=== PATIENT | female | born 1935 | race Caucasian/White ===

== ENCOUNTER 2019-10-20 16:49 | Emergency (ER) | payer OTHER ==
[~2019-10-20] VITALS: Ht 154.9 cm; Wt 83.9 kg
[~2019-10-20 16:49] MED LIST changes: -ALBU90OI INH; -Ferrous Sulfat325 MG PO
[2019-10-20] MEDS ORDERED: ALBU90OI INH (17:52)
[2019-10-20 18:02] LABS: Percent Saturation 6.7 % (15.0-50.0)
[2019-10-20] MEDS ORDERED: Ferrous Sulfat325 MG PO (19:17)
== END 2019-10-20 21:00 | disposition home or self-care (01) ==
LOC: ER 16:49
PROVIDERS: Emergency Medicine
DX: D50.9 Iron deficiency anemia, unspecified (principal); R53.83 Other fatigue
CPT/HCPCS: 36415; 36430; 80053; 82607; 82728; 82746; 83540; 83550; 85025; 86850; 86900; 86901; 86923; 99283-25; J7030; P9016

== ENCOUNTER → 2019-10-20 | Outpatient (CLI) | payer OTHER ==
[~2019-10-20] MED LIST: ALBU90OI INH; ERGO50000 PO; Ferrous Sulfat325 MG PO; PROM25 PO
[2019-10-20 15:29] LABS: BASOPHILS ABSOLUTE AUTO 0.03 K/mm3 (0.00-0.23); BASOPHILS PERCENT AUTO 1 % (0-2); EOSINOPHILS PERCENT AUTO 2 % (0-6); Hematocrit 27.3 % (33.0-51.0); Hemoglobin 7.7 g/dL (11.5-16.0); IMMATURE GRAN ABSOLUTE AUTO 0.02 K/mm3 (0.00-0.10); IMMATURE GRAN PERCENT AUTO 0 % (0-1); LYMPHOCYTES ABSOLUTE AUTO 1.19 K/mm3 (0.84-5.20); LYMPHOCYTES PERCENT AUTO 19 % (21-46); MONOCYTES ABSOLUTE AUTO 0.62 K/mm3 (0.16-1.47); MONOCYTES PERCENT AUTO 10 % (4-13); Mean Corpuscular HGB 19.6 pg (26.0-34.0); Mean Corpuscular HGB Conc 28.2 g/dL (31.5-36.5); Mean Corpuscular Volume 70 fL (80-100); Mean Platelet Volume 9.7 fL (9.1-12.4); NEUTROPHILS ABSOLUTE AUTO 4.43 K/mm3 (1.96-9.15); NEUTROPHILS PERCENT AUTO 69 % (41-73); Platelet Count 377 K/mm3 (150-400); RDW Coefficient Variation 17.6 % (11.7-14.2); RDW Standard Deviation 44.1 fL (35.1-46.3); Red Blood Cell Count 3.93 M/mm3 (3.80-5.20); White Blood Cell Count 6.39 K/mm3 (4.00-11.30)
[2019-10-20 15:46] LABS: Alanine Aminotransfer (ALT/SGP 17 U/L (12-78); Albumin, Blood 3.2 g/dL (3.4-5.0); Albumin/Globulin Ratio 0.8 (0.8-1.8); Alk Phos 281 U/L (50-136); Anion Gap 6 mmol/L (6-16); Aspartate Aminotrans (AST/SGOT 16 U/L (12-37); Bilirubin, Total 0.2 mg/dL (0.1-1.0); Blood Urea Nitrogen 13 mg/dL (8-24); Bun/Creatinine Ratio 15.2 (12.0-20.0); CO2, Blood 26 mmol/L (21-32); Calcium, Blood 8.6 mg/dL (8.5-10.1); Chloride, Blood 107 mmol/L (98-108); Creatinine, Blood 0.86 mg/dL (0.40-1.00); Glomerular Filtration Rate >60 (60-); Glucose, Blood 114 mg/dL (70-99); Potassium, Blood 4.2 mmol/L (3.5-5.5); Sodium, Blood 139 mmol/L (136-145); Total Protein, Blood 7.2 g/dL (6.4-8.2)
== END ==
LOC: LAB SHORT 15:22 → LAB 15:22
PROVIDERS: Nurse Practitioner
DX: R53.83 Other fatigue (principal)
CPT/HCPCS: 80053; 85025

== ENCOUNTER → 2021-01-07 | Outpatient (CLI) | payer OTHER ==
[~2021-01-07] MED LIST changes: +ALBU90OI INH; +Ferrous Sulfat325 MG PO
[2021-01-07 20:34] LABS: Iron Serum 31 ug/dL (50-170); Percent Saturation 7.8 % (15.0-50.0); Total Iron Binding Capacity 395 ug/dL (250-450)
[2021-01-07 20:52] LABS: Alanine Aminotransfer (ALT/SGP 19 U/L (12-78); Albumin, Blood 3.6 g/dL (3.4-5.0); Albumin/Globulin Ratio 1.1 (0.8-1.8); Alk Phos 268 U/L (50-136); Anion Gap 7 mmol/L (6-16); Aspartate Aminotrans (AST/SGOT 15 U/L (12-37); Bilirubin, Total 0.3 mg/dL (0.1-1.0); Blood Urea Nitrogen 12 mg/dL (8-24); CO2, Blood 23 mmol/L (21-32); Chloride, Blood 110 mmol/L (98-108); Creatinine, Blood 0.92 mg/dL (0.40-1.00); Ferritin, Serum 18 ng/mL (8-252); Globulin, Blood 3.2 g/dL (2.2-4.0); Glomerular Filtration Rate >60 (60-); Glucose, Blood 106 mg/dL (70-99); Potassium, Blood 4.1 mmol/L (3.5-5.5); Sodium, Blood 140 mmol/L (136-145); Total Protein, Blood 6.8 g/dL (6.4-8.2)
== END | disposition home or self-care (01) ==
LOC: PLD 15:00 → LAB SHORT 15:00
PROVIDERS: Family Medicine
DX: Z13.29 Encounter for screening for other suspected endocrine disorder (principal); D64.9 Anemia, unspecified; I10 Essential (primary) hypertension
CPT/HCPCS: 80053; 82728; 83540; 83550; 84443

== ENCOUNTER 2021-05-18 20:48 | Emergency (ER) | payer OTHER ==
[~2021-05-18] VITALS: Ht 157.5 cm; Wt 84.2 kg
== END 2021-05-18 22:35 | disposition home or self-care (01) ==
LOC: ER 20:48
DX: R05 Cough (principal); J44.9 Chronic obstructive pulmonary disease, unspecified; Z88.0 Allergy status to penicillin; Z88.8 Allergy status to other drugs, medicaments and biological substances; Z79.899 Other long term (current) drug therapy
CPT/HCPCS: 99283; A9270

== ENCOUNTER 2022-03-05 13:21 | Inpatient (IN) | payer OTHER ==
[~2022-03-05] VITALS: Ht 157.5 cm; Wt 82.8 kg
[~2022-03-05 13:21] MED LIST changes: -Acetaminophen325 M1 PO; -OMEP20ER PO
[2022-03-05 13:52] LABS: BASOPHILS ABSOLUTE AUTO 0.04 K/mm3 (0.00-0.23); BASOPHILS PERCENT AUTO 1 % (0-2); EOSINOPHILS ABSOLUTE AUTO 0.23 K/mm3 (0.00-0.68); EOSINOPHILS PERCENT AUTO 4 % (0-6); Hematocrit 25.1 % (33.0-51.0); Hemoglobin 6.6 g/dL (11.5-16.0); IMMATURE GRAN ABSOLUTE AUTO 0.03 K/mm3 (0.00-0.10); IMMATURE GRAN PERCENT AUTO 1 % (0-1); LYMPHOCYTES ABSOLUTE AUTO 1.16 K/mm3 (0.84-5.20); LYMPHOCYTES PERCENT AUTO 19 % (21-46); MONOCYTES ABSOLUTE AUTO 0.38 K/mm3 (0.16-1.47); MONOCYTES PERCENT AUTO 6 % (4-13); Mean Corpuscular HGB 17.6 pg (26.0-34.0); Mean Corpuscular HGB Conc 26.3 g/dL (31.5-36.5); Mean Corpuscular Volume 67 fL (80-100); Mean Platelet Volume 9.5 fL (9.1-12.4); NEUTROPHILS ABSOLUTE AUTO 4.36 K/mm3 (1.96-9.15); NEUTROPHILS PERCENT AUTO 70 % (41-73); NRBC ABSOLUTE 0.03 K/mm3 (0.00-0.02); NRBC Auto 0.5 /100 WBC (0.0-0.2); Platelet Count 493 K/mm3 (150-400); RDW Coefficient Variation 22.1 % (11.7-14.2); RDW Standard Deviation 52.3 fL (35.1-46.3); Red Blood Cell Count 3.74 M/mm3 (3.80-5.20)
[2022-03-05 14:09] LABS: Alanine Aminotransfer (ALT/SGP 17 U/L (12-78); Albumin/Globulin Ratio 0.8 (0.8-1.8); Alk Phos 336 U/L (50-136); Anion Gap 8 mmol/L (6-16); Aspartate Aminotrans (AST/SGOT 16 U/L (12-37); Bilirubin, Total 0.2 mg/dL (0.1-1.0); Blood Urea Nitrogen 14 mg/dL (8-24); Bun/Creatinine Ratio 17.6 (12.0-20.0); CO2, Blood 27 mmol/L (21-32); Calcium, Blood 8.3 mg/dL (8.5-10.1); Chloride, Blood 106 mmol/L (98-108); Globulin, Blood 3.9 g/dL (2.2-4.0); Glomerular Filtration Rate >60 (60-); Glucose, Blood 157 mg/dL (70-99); Potassium, Blood 3.9 mmol/L (3.5-5.5); Sodium, Blood 141 mmol/L (136-145); Total Protein, Blood 6.9 g/dL (6.4-8.2)
[2022-03-05 14:16] LABS: Percent Saturation 2.6 % (15.0-50.0)
[2022-03-05 14:28] LABS: International Normalized Ratio 0.99; Prothrombin Time Results 10.4 Sec (9.7-11.5)
--- NOTE | 2022-03-05 19:12 | NUR ---
SHIFT SUMMARY PATIENT ADMITTED FROM ER FOR GI BLEED. PATIENT CAME UP RECEIVING 2ND UNIT OF BLOOD. FULL LIQUID DIET AND NPO AFTER BREAKFAST WITH PLANNED EGD TOMORROW. UP TO RESTROOM 1PA TO MANAGE IV POLE AND TELE BOX. ADMISSION DOCUMENTATION COMPLETED EXCEPT ADMISSION ASSESMENT. REPORTED TO ONCOMING RN.
--- NOTE | 2022-03-05 20:19 | NUR ---
NURSE NOTE: SECOND UNIT OF BLOOD COMPLETED AT 2019- TOTAL OF 767 ML FROM SECOND BAG OF PRBC'S INCLUDING LINE FLUSH. PATIENTS VITALS REMAINED STABLE, LUNG SOUNDS CLEAR. BLOOD PRODUCT DOCUMENTATION INITIATED PAPER CHARTING IN ED. PER CHARGE NURSE COMPLETE BLOOD ADMINISTRATION CHARTING VIA PAPER CHART- PLACED IN PT CHART. IV REMOVED POST ADMINISTRATION OF BLOOD PRODUCT DUE TO PT COMPLAINT OF DISCOMFORT AND SLIGHT LEAKING AT SIGHT. PT DECLINED ANY ADDITIONAL IV PLACEMENT AT THIS TIME, AGREES FOR NEW IV TO BE PLACED PRIOR TO TOMORROWS EGD PROCEDURE.
--- NOTE | 2022-03-06 00:07 | NUR ---
2240- NOTIFIED PT IV REMOVED DUE TO LEAKING, PT REFUSED NEW PLACEMENT OF IV AT THIS TIME. REQUESTING NEW IV TO BE PLACED PRIOR TO EGD TOMORROW. PT ON TELEMETRY- MD AWARE AND APPROVED APPROPRIATE PLAN.
--- NOTE | 2022-03-06 05:25 | NUR ---
SHIFT SUMMARY: PATIENT A/O X4. SECOND UNIT OF BLOOD COMPLETED AT 2019 WITH NO COMPLICATIONS. PT REQUEST FOR IV TO BE REMOVED AND NOT REPLACED TILL PRIOR TO SCHEDULED EGD- DUE TO CONTINUED TELEMETRY MD WAS NOTIFIED AND AWARE. NO COMPLAINTS OF PAIN OR BLOODY STOOLS. SUPERVISION UP TO BATHROOM, STEADY ON FEET, ORIENTED TO OWN ABILITY. BED IN LOW POSITION, CALL NEWBERRY AND BELONGINGS IN REACH.
--- NOTE | 2022-03-06 07:13 | NUR ---
PT COOPERATIVE AND PLEASANT. A/O X4. DENIES PAIN. H/R REGULAR. NO MURMUR PRESENT. ON TELE. PER BODY PRESSER NSR IN 80'S. LUNGS CLEAR BILATERALLY ON ROOM AIR. BREATHING IS EASY AND UNLABORED. HYPERACTIVE BOWEL SOUNDS. PT STATES LAST BOWEL MOVEMENT WAS YESTERDAY MORNING. PT AMBULATES TO RESTROOM WITH STANDBY ASSIST. PER REPORT FROM RN, PT TO GET ENDOSCOPY TODAY AROUND 1500. PT DOES NOT HAVE AN IV ESTABLISHED AND REQUESTS TO WAIT UNTIL LATER TODAY. PT IS TO BE NPO AFTER HER MORNING CLEAR LIQUID BREAKFAST. BED IN LOW POSITION, CALL LIGHT IN REACH, CALLS APPROPRATLY.
--- NOTE | 2022-03-06 09:01 | NUR ---
PT IRRITABLE THAT SHE HAS TO HAVE BLOOD DRAWN WELL AN IV INSERTED FOR HER UPPER ENDOSCOPY. IV WAS ATTEMPTED, PT REQUESTED WE GIVE HER A BREAK. SHE SAYS SHE WILL GIVE US ONE MORE TIME, BUT AFTER THAT SHE MAY NOT HAVE THE ENDOSCOPY. SHE WILL GO HOME AND CONTINUE TO DO WHAT SHE HAS BEEN DOING. PT MADE AWARE THAT DOCTOR REQUESTED SHE HAVE THE UPPER ENDOSCOPY TO SEE WHAT IS GOING ON.
[2022-03-06 11:22] LABS: BASOPHILS ABSOLUTE AUTO 0.05 K/mm3 (0.00-0.23); BASOPHILS PERCENT AUTO 1 % (0-2); EOSINOPHILS ABSOLUTE AUTO 0.28 K/mm3 (0.00-0.68); EOSINOPHILS PERCENT AUTO 5 % (0-6); Hematocrit 29.5 % (33.0-51.0); Hemoglobin 8.7 g/dL (11.5-16.0); IMMATURE GRAN ABSOLUTE AUTO 0.03 K/mm3 (0.00-0.10); IMMATURE GRAN PERCENT AUTO 1 % (0-1); LYMPHOCYTES ABSOLUTE AUTO 1.15 K/mm3 (0.84-5.20); LYMPHOCYTES PERCENT AUTO 21 % (21-46); MONOCYTES ABSOLUTE AUTO 0.65 K/mm3 (0.16-1.47); MONOCYTES PERCENT AUTO 12 % (4-13); Mean Corpuscular HGB 20.5 pg (26.0-34.0); Mean Corpuscular HGB Conc 29.5 g/dL (31.5-36.5); Mean Corpuscular Volume 69 fL (80-100); Mean Platelet Volume 9.4 fL (9.1-12.4); NEUTROPHILS ABSOLUTE AUTO 3.28 K/mm3 (1.96-9.15); NEUTROPHILS PERCENT AUTO 60 % (41-73); NRBC ABSOLUTE 0.03 K/mm3 (0.00-0.02); NRBC Auto 0.6 /100 WBC (0.0-0.2); Platelet Count 441 K/mm3 (150-400); RDW Coefficient Variation 23.7 % (11.7-14.2); RDW Standard Deviation 58.4 fL (35.1-46.3); Red Blood Cell Count 4.25 M/mm3 (3.80-5.20); White Blood Cell Count 5.44 K/mm3 (4.00-11.30)
[2022-03-06 11:42] LABS: Alanine Aminotransfer (ALT/SGP 16 U/L (12-78); Albumin, Blood 2.9 g/dL (3.4-5.0); Albumin/Globulin Ratio 0.8 (0.8-1.8); Alk Phos 321 U/L (50-136); Anion Gap 4 mmol/L (6-16); Aspartate Aminotrans (AST/SGOT 11 U/L (12-37); Bilirubin, Total 0.5 mg/dL (0.1-1.0); Blood Urea Nitrogen 11 mg/dL (8-24); Bun/Creatinine Ratio 14.8 (12.0-20.0); CO2, Blood 27 mmol/L (21-32); Calcium, Blood 8.7 mg/dL (8.5-10.1); Chloride, Blood 108 mmol/L (98-108); Creatinine, Blood 0.74 mg/dL (0.40-1.00); Globulin, Blood 3.8 g/dL (2.2-4.0); Glomerular Filtration Rate >60 (60-); Glucose, Blood 92 mg/dL (70-99); Potassium, Blood 4.2 mmol/L (3.5-5.5); Sodium, Blood 139 mmol/L (136-145); Total Protein, Blood 6.7 g/dL (6.4-8.2)
--- NOTE | 2022-03-06 14:47 | NUR ---
DAY SURGERY TO COLLECT PT FOR ENDOSCOPY. PT LEFT ROOM AT 1435.
--- NOTE | 2022-03-06 14:55 | NUR ---
History, Chart, Medications and Allergies reviewed before start of procedure.Lungs clear T/O to Auscultation. Patient confirms NPO status and agrees with scheduled surgery. Pre-Op teaching done. Pt verbalizes understanding.
--- NOTE | 2022-03-06 14:55 | NUR ---
DAUGHTER AT BEDSIDE
--- NOTE | 2022-03-06 16:13 | NUR ---
03/06/22 1613 Alejandra Cordon SEE ANESTHESIA RECORD. Bite Block Placed.
[2022-03-06] MEDS ORDERED: OMEP20ER PO (18:14)
[2022-03-06] MEDS ORDERED: Acetaminophen325 M1 PO (18:14)
--- NOTE | 2022-03-06 18:28 | NUR ---
MATEUS RECEIVED FROM DR DAVIS THIS SERENA. DAUGHTER TO COME TO HOSP AND TAKE HOME. TO [place]. PT DOING WELL AFTER EGD. VSS. WILL DO DISCHAARGE AND GET DONE SHORTLY TO DISCHARGE SHIFT CHANGE. BED IN LOW POSITION, CALL LITE IN REACH, CALLS APPROP
--- NOTE | 2022-03-06 18:33 | NUR ---
PT PLEASANT TODAY. A/O X4. WAS NPO DUE TO HER ENDOSCOPY. PT RETURNED FROM ENDOSCOPY AT 1456. PT ANXIOUS TO RETURN HOME. DENIES PAIN. H/R REGUALR IN 80'S. ON TELE. NO MURMUR. LUNGS CLEAR BILATERALLY. LAST BOWEL MOVEMENT WAS TODAY PT STATED. AMBULATED TO RESTROOM INDEPENDENTLY. GIVEN ICECREAM AND ICE CHIPS AFTER ENDOSCOPY. PT TOLERATED PO INTAKE WELL. BED IN LOW POSITON, CALL LIGHT IN PLACE AND CALLS APPROPRIATLY.
--- NOTE | 2022-03-06 19:50 | NUR ---
NURSE NOTE: ROCÍO OLIVA NOTIFIED- COMPLICATION IN PLANNED DISCHARGE TONIGHT. DAUGHTER OF PATIENT CALLED AND HAS A FAMILY EMERGENCY AND CANNOT PROVIDE DISCHARGE TRANSPORTATION TONIGHT. MULTIPLE ATTEMPTS TO CONTACT THE [facility] WITH NO ANSWER- THE FACILITY CLOSES AT 1700. PATIENT EXPRESSED CONCERN THAT IF [facility] IS USED FOR DISCHARGE TRANSPORTATION THAT SHE WILL NOT HAVE ACCESS TO THE FACILITY, PT REPORTS NO [facility] IN PERSONAL POSSESSION. PATIENT REQUESTING TO STAY OVERNIGHT UNTIL TOMORROW WHEN WE CAN GUARANTEE A SAFE TRANSPORT. MD REQUEST TO CONTINUE IN ATTEMPT TO COMPLETE DISCHARGE TONIGHT, IF UNABLE TO DISCHARGE TONIGHT MD AGREES TO KEEP PATIENT OVERNIGHT. MD GAVE TELEPHONE ORDER TO DISCONTINUE TELEMETRY AND IV.
--- NOTE | 2022-03-07 03:57 | NUR ---
SHIFT SUMMARY: PT A/OX4, ADLIB IN ROOM, INDEPENDENT ADL's. NO COMPLAINTS OF PAIN THROUGHOUT SHIFT. DUE TO LAST NIGHTS PLANNED DISCHARGE BEING POSPONED TILL TODAY, IV IS OUT, TELEMETRY DISCONTINUED AND DISCHARGE PAPER WORK GIVEN TO PATIENT AND REVIEWED. DISCHARGE DELAYED TILL TODAY DUE TO INABILITY TO TRANSPORT PT TO FACILITY, FAMILY EMER[facility] CAUSED INABILITY FOR TRANSPORT AND WAS NOT ABLE TO REACH ASSISTED LIVING TO ENSURE PATIENT WOULD BE LET IN IF ALTERNATIVE TRANSPORTATION WAS CHOSEN. PT DOES NOT HAVE L[facility] AND FACILITY ANSWERING SERVICES CLOSED AT 1700. NO CHANGES THROUGHOUT THE NIGHT.
--- NOTE | 2022-03-07 10:24 | NUR ---
DISCHARGE PT WAS EXPECTED TO DISCHARGE LAST NIGHT AND WAS UNABLE TO DUE TO RIDE ISSUES. TODAY PT CALLED HER FACILITY AND A [facility] AND GOT HERSELF A RIDE. ALL IV AND TELE WAS DC'D LAST NIGHT. PT HAD HER DISCHARGE BINDER AND WAS CLEAR ON DISCHARGE INSTRUCTIONS. SHE WAS WHEELED TO THE EXT AND LEFT AT 0845.
== END 2022-03-07 08:50 | disposition home or self-care (01) | DRG 379 ==
LOC: ER 13:21 → MEDS 17:21
PROVIDERS: Physician Assistant; Student in an Organized Health Care Education/Training Program; ADMIT Family Medicine
PROC: 0DB68ZX Excision of Stomach, Via Natural or Artificial Opening Endoscopic, Diagnostic (ICD-10-PCS; 2022-03-06)
PROC: 30233N1 Transfusion of Nonautologous Red Blood Cells into Peripheral Vein, Percutaneous Approach (ICD-10-PCS; 2022-03-06)
PROC: 0DB98ZX Excision of Duodenum, Via Natural or Artificial Opening Endoscopic, Diagnostic (ICD-10-PCS; principal; 2022-03-06 15:30)
DX: K29.71 Gastritis, unspecified, with bleeding (principal); D50.0 Iron deficiency anemia secondary to blood loss (chronic); K44.9 Diaphragmatic hernia without obstruction or gangrene; J44.9 Chronic obstructive pulmonary disease, unspecified; I10 Essential (primary) hypertension; Z68.33 Body mass index [BMI] 33.0-33.9, adult; E66.9 Obesity, unspecified; E55.9 Vitamin D deficiency, unspecified; G47.33 Obstructive sleep apnea (adult) (pediatric); Z60.2 Problems related to living alone; M85.80 Other specified disorders of bone density and structure, unspecified site; Z88.0 Allergy status to penicillin; Z88.8 Allergy status to other drugs, medicaments and biological substances; Z79.899 Other long term (current) drug therapy; Z90.49 Acquired absence of other specified parts of digestive tract
CPT/HCPCS: 36415; 36430; 80053; 82272; 82728; 82977; 83540; 83550; 85025; 85610; 85730; 86381; 86850; 86900; 86901; 86923; 88305; 88342; 93005; 93010; 96374; 99285-25; C9113; J2405; J2704; J7030; J7120; P9016

== ENCOUNTER → 2022-03-05 | Outpatient (CLI) | payer OTHER ==
[~2022-03-05] MED LIST changes: +Acetaminophen325 M1 PO; +OMEP20ER PO
[2022-03-05 11:38] LABS: BASOPHILS ABSOLUTE AUTO 0.03 K/mm3 (0.00-0.23); BASOPHILS PERCENT AUTO 1 % (0-2); EOSINOPHILS ABSOLUTE AUTO 0.27 K/mm3 (0.00-0.68); EOSINOPHILS PERCENT AUTO 4 % (0-6); Hematocrit 24.1 % (33.0-51.0); Hemoglobin 6.4 g/dL (11.5-16.0); IMMATURE GRAN ABSOLUTE AUTO 0.03 K/mm3 (0.00-0.10); IMMATURE GRAN PERCENT AUTO 1 % (0-1); LYMPHOCYTES ABSOLUTE AUTO 1.26 K/mm3 (0.84-5.20); LYMPHOCYTES PERCENT AUTO 20 % (21-46); MONOCYTES PERCENT AUTO 11 % (4-13); Mean Corpuscular HGB 17.5 pg (26.0-34.0); Mean Corpuscular HGB Conc 26.6 g/dL (31.5-36.5); Mean Corpuscular Volume 66 fL (80-100); Mean Platelet Volume 9.8 fL (9.1-12.4); NEUTROPHILS ABSOLUTE AUTO 4.06 K/mm3 (1.96-9.15); NEUTROPHILS PERCENT AUTO 64 % (41-73); NRBC ABSOLUTE 0.04 K/mm3 (0.00-0.02); NRBC Auto 0.6 /100 WBC (0.0-0.2); Platelet Count 480 K/mm3 (150-400); RDW Coefficient Variation 22.5 % (11.7-14.2); Red Blood Cell Count 3.65 M/mm3 (3.80-5.20); White Blood Cell Count 6.35 K/mm3 (4.00-11.30)
[2022-03-05 11:57] LABS: Anion Gap 9 mmol/L (6-16); Blood Urea Nitrogen 14 mg/dL (8-24); Bun/Creatinine Ratio 16.5 (12.0-20.0); CO2, Blood 26 mmol/L (21-32); Calcium, Blood 8.3 mg/dL (8.5-10.1); Chloride, Blood 106 mmol/L (98-108); Creatinine, Blood 0.85 mg/dL (0.40-1.00); Glomerular Filtration Rate >60 (60-); Glucose, Blood 86 mg/dL (70-99); Sodium, Blood 141 mmol/L (136-145)
== END | disposition home or self-care (01) ==
LOC: LAB SHORT 11:33 → LAB 11:33
PROVIDERS: Physician Assistant Surgical
DX: R06.00 Dyspnea, unspecified (principal); R53.83 Other fatigue
CPT/HCPCS: 80048; 83880; 84443; 84484; 85025; 85379

== ENCOUNTER 2022-06-12 15:37 | Emergency (ER) | payer OTHER ==
[~2022-06-12] VITALS: Ht 152.4 cm; Wt 81.7 kg
[~2022-06-12 15:37] MED LIST changes: +Acetaminophen325 M1 PO; +OMEP20ER PO
[2022-06-12 16:16] LABS: BASOPHILS ABSOLUTE AUTO 0.04 K/mm3 (0.00-0.23); BASOPHILS PERCENT AUTO 0 % (0-2); EOSINOPHILS ABSOLUTE AUTO 0.27 K/mm3 (0.00-0.68); EOSINOPHILS PERCENT AUTO 3 % (0-6); Hematocrit 23.1 % (33.0-51.0); IMMATURE GRAN ABSOLUTE AUTO 0.05 K/mm3 (0.00-0.10); IMMATURE GRAN PERCENT AUTO 1 % (0-1); LYMPHOCYTES ABSOLUTE AUTO 1.24 K/mm3 (0.84-5.20); LYMPHOCYTES PERCENT AUTO 13 % (21-46); MONOCYTES ABSOLUTE AUTO 0.72 K/mm3 (0.16-1.47); MONOCYTES PERCENT AUTO 8 % (4-13); Mean Corpuscular HGB 14.5 pg (26.0-34.0); Mean Corpuscular HGB Conc 24.7 g/dL (31.5-36.5); Mean Corpuscular Volume 59 fL (80-100); Mean Platelet Volume 9.6 fL (9.1-12.4); NEUTROPHILS PERCENT AUTO 75 % (41-73); NRBC ABSOLUTE 0.03 K/mm3 (0.00-0.02); NRBC Auto 0.3 /100 WBC (0.0-0.2); Platelet Count 501 K/mm3 (150-400); RDW Coefficient Variation 21.9 % (11.7-14.2); RDW Standard Deviation 42.7 fL (35.1-46.3); Red Blood Cell Count 3.92 M/mm3 (3.80-5.20); White Blood Cell Count 9.22 K/mm3 (4.00-11.30)
[2022-06-12 16:19] LABS: Hemoglobin 5.7 g/dL (11.5-16.0)
[2022-06-12 16:35] LABS: Albumin, Blood 3.1 g/dL (3.4-5.0); Albumin/Globulin Ratio 0.7 (0.8-1.8); Bilirubin, Total 0.3 mg/dL (0.1-1.0); Bun/Creatinine Ratio 13.6 (12.0-20.0); Calcium, Blood 8.5 mg/dL (8.5-10.1); Creatinine, Blood 0.73 mg/dL (0.40-1.00); Globulin, Blood 4.2 g/dL (2.2-4.0); Potassium, Blood 3.8 mmol/L (3.5-5.5); Total Protein, Blood 7.3 g/dL (6.4-8.2)
== END 2022-06-12 21:50 | disposition home or self-care (01) ==
LOC: ER 15:37
PROVIDERS: Physician Assistant
DX: K92.2 Gastrointestinal hemorrhage, unspecified (principal); D64.9 Anemia, unspecified; Z79.899 Other long term (current) drug therapy
CPT/HCPCS: 36415; 71045; 80053; 84484; 85025; 86850; 86900; 86901; 86923; 93005; 93010; J7030; P9016

== ENCOUNTER 2022-06-26 11:54 | Emergency (ER) | payer OTHER ==
[~2022-06-26] VITALS: Ht 157.5 cm; Wt 81.7 kg
[2022-06-26 13:12] LABS: BASOPHILS ABSOLUTE AUTO 0.03 K/mm3 (0.00-0.23); BASOPHILS PERCENT AUTO 1 % (0-2); EOSINOPHILS ABSOLUTE AUTO 0.27 K/mm3 (0.00-0.68); EOSINOPHILS PERCENT AUTO 5 % (0-6); Hematocrit 25.7 % (33.0-51.0); Hemoglobin 7.1 g/dL (11.5-16.0); IMMATURE GRAN ABSOLUTE AUTO 0.01 K/mm3 (0.00-0.10); IMMATURE GRAN PERCENT AUTO 0 % (0-1); LYMPHOCYTES ABSOLUTE AUTO 1.01 K/mm3 (0.84-5.20); LYMPHOCYTES PERCENT AUTO 18 % (21-46); MONOCYTES ABSOLUTE AUTO 0.68 K/mm3 (0.16-1.47); MONOCYTES PERCENT AUTO 12 % (4-13); Mean Corpuscular HGB 17.9 pg (26.0-34.0); Mean Corpuscular HGB Conc 27.6 g/dL (31.5-36.5); Mean Corpuscular Volume 65 fL (80-100); NEUTROPHILS ABSOLUTE AUTO 3.72 K/mm3 (1.96-9.15); NEUTROPHILS PERCENT AUTO 65 % (41-73); NRBC ABSOLUTE 0.02 K/mm3 (0.00-0.02); NRBC Auto 0.3 /100 WBC (0.0-0.2); Platelet Count 567 K/mm3 (150-400); RDW Coefficient Variation 28.2 % (11.7-14.2); RDW Standard Deviation 62.6 fL (35.1-46.3); Red Blood Cell Count 3.97 M/mm3 (3.80-5.20); White Blood Cell Count 5.72 K/mm3 (4.00-11.30)
[2022-06-26 13:44] LABS: Albumin, Blood 2.9 g/dL (3.4-5.0); Albumin/Globulin Ratio 0.7 (0.8-1.8); Bilirubin, Total 0.2 mg/dL (0.1-1.0); Bun/Creatinine Ratio 11.6 (12.0-20.0); Calcium, Blood 8.2 mg/dL (8.5-10.1); Creatinine, Blood 0.69 mg/dL (0.40-1.00); Globulin, Blood 4.1 g/dL (2.2-4.0); Potassium, Blood 3.7 mmol/L (3.5-5.5)
== END 2022-06-26 20:41 | disposition home or self-care (01) ==
LOC: ER 11:54
PROVIDERS: Physician Assistant
DX: D50.0 Iron deficiency anemia secondary to blood loss (chronic) (principal); E66.9 Obesity, unspecified; I10 Essential (primary) hypertension; Z88.0 Allergy status to penicillin; Z91.018 Allergy to other foods; Z79.899 Other long term (current) drug therapy
CPT/HCPCS: 36415; 80053; 85025; 86850; 86900; 86901; 86923; J7030; P9016

== ENCOUNTER → 2023-01-04 | Outpatient (CLI) | payer OTHER | END | disposition home or self-care (01) | LOC: LAB 14:36 → LAB SHORT 14:36 | DX: M79.604 Pain in right leg (principal); M79.605 Pain in left leg | CPT/HCPCS: 85379 ==

== ENCOUNTER → 2023-07-26 | Outpatient (CLI) | payer OTHER | LOC: LAB SHORT 14:29 → PLD 14:29 | DX: D36.12 Benign neoplasm of peripheral nerves and autonomic nervous system, upper limb, including shoulder (principal); L82.1 Other seborrheic keratosis | CPT/HCPCS: 88305 ==

== ENCOUNTER 2023-07-27 20:47 | Emergency (ER) | payer OTHER ==
[~2023-07-27] VITALS: Ht 154.9 cm; Wt 83.9 kg
[2023-07-27 21:34] VITALS: BP 144/75
[2023-07-27 23:50] LABS: BASOPHILS ABSOLUTE AUTO 0.04 K/mm3 (0.00-0.23); BASOPHILS PERCENT AUTO 1 % (0-2); EOSINOPHILS ABSOLUTE AUTO 0.19 K/mm3 (0.00-0.68); EOSINOPHILS PERCENT AUTO 3 % (0-6); Hematocrit 42.4 % (33.0-51.0); Hemoglobin 13.5 g/dL (11.5-16.0); IMMATURE GRAN ABSOLUTE AUTO 0.02 K/mm3 (0.00-0.10); IMMATURE GRAN PERCENT AUTO 0 % (0-1); LYMPHOCYTES ABSOLUTE AUTO 1.14 K/mm3 (0.84-5.20); LYMPHOCYTES PERCENT AUTO 16 % (21-46); MONOCYTES ABSOLUTE AUTO 0.55 K/mm3 (0.16-1.47); MONOCYTES PERCENT AUTO 8 % (4-13); Mean Corpuscular HGB 28.3 pg (26.0-34.0); Mean Corpuscular HGB Conc 31.8 g/dL (31.5-36.5); Mean Corpuscular Volume 89 fL (80-100); Mean Platelet Volume 9.4 fL (9.1-12.4); NEUTROPHILS ABSOLUTE AUTO 5.24 K/mm3 (1.96-9.15); NEUTROPHILS PERCENT AUTO 73 % (41-73); Platelet Count 339 K/mm3 (150-400); RDW Coefficient Variation 12.6 % (11.7-14.2); RDW Standard Deviation 41.4 fL (35.1-46.3); Red Blood Cell Count 4.77 M/mm3 (3.80-5.20); White Blood Cell Count 7.18 K/mm3 (4.00-11.30)
[2023-07-28 00:04] LABS: Albumin, Blood 3.4 g/dL (3.4-5.0); Albumin/Globulin Ratio 0.9 (0.8-1.8); Bilirubin, Total 0.2 mg/dL (0.1-1.0); Bun/Creatinine Ratio 15.3 (12.0-20.0); Calcium, Blood 9.1 mg/dL (8.5-10.1); Creatinine, Blood 0.85 mg/dL (0.40-1.00); Globulin, Blood 3.7 g/dL (2.2-4.0); Potassium, Blood 4.4 mmol/L (3.5-5.5); Total Protein, Blood 7.1 g/dL (6.4-8.2)
== END 2023-07-28 05:28 | disposition home or self-care (01) ==
LOC: ER 20:47
PROVIDERS: Student in an Organized Health Care Education/Training Program
DX: K59.00 Constipation, unspecified (principal); I10 Essential (primary) hypertension; E66.9 Obesity, unspecified; Z68.35 Body mass index [BMI] 35.0-35.9, adult; Z88.0 Allergy status to penicillin; Z91.018 Allergy to other foods; Z91.048 Other nonmedicinal substance allergy status; Z79.899 Other long term (current) drug therapy
CPT/HCPCS: 74018; 80053; 85025; 99284-25; A9270

== ENCOUNTER 2023-10-30 19:27 | Emergency (ER) | payer OTHER ==
[~2023-10-30] VITALS: Ht 162.6 cm; Wt 127.0 kg
[2023-10-30 19:28] VITALS: BP 154/89
[2023-10-30 19:56] LABS: BASOPHILS ABSOLUTE AUTO 0.03 K/mm3 (0.00-0.23); BASOPHILS PERCENT AUTO 1 % (0-2); EOSINOPHILS ABSOLUTE AUTO 0.25 K/mm3 (0.00-0.68); EOSINOPHILS PERCENT AUTO 4 % (0-6); Hematocrit 39.9 % (33.0-51.0); Hemoglobin 12.4 g/dL (11.5-16.0); IMMATURE GRAN ABSOLUTE AUTO 0.02 K/mm3 (0.00-0.10); IMMATURE GRAN PERCENT AUTO 0 % (0-1); LYMPHOCYTES ABSOLUTE AUTO 1.19 K/mm3 (0.84-5.20); LYMPHOCYTES PERCENT AUTO 20 % (21-46); MONOCYTES ABSOLUTE AUTO 0.55 K/mm3 (0.16-1.47); MONOCYTES PERCENT AUTO 9 % (4-13); Mean Corpuscular HGB 24.6 pg (26.0-34.0); Mean Corpuscular HGB Conc 31.1 g/dL (31.5-36.5); Mean Corpuscular Volume 79 fL (80-100); Mean Platelet Volume 9.5 fL (9.1-12.4); NEUTROPHILS ABSOLUTE AUTO 4.05 K/mm3 (1.96-9.15); NEUTROPHILS PERCENT AUTO 67 % (41-73); Platelet Count 342 K/mm3 (150-400); RDW Coefficient Variation 14.9 % (11.7-14.2); RDW Standard Deviation 42.5 fL (35.1-46.3); Red Blood Cell Count 5.04 M/mm3 (3.80-5.20); White Blood Cell Count 6.09 K/mm3 (4.00-11.30)
[2023-10-30 20:09] LABS: Albumin, Blood 3.2 g/dL (3.4-5.0); Albumin/Globulin Ratio 0.8 (0.8-1.8); Bilirubin, Total 0.3 mg/dL (0.1-1.0); Bun/Creatinine Ratio 14.1 (12.0-20.0); Calcium, Blood 9.1 mg/dL (8.5-10.1); Creatinine, Blood 0.78 mg/dL (0.40-1.00); Globulin, Blood 4.1 g/dL (2.2-4.0); Potassium, Blood 3.7 mmol/L (3.5-5.5); Total Protein, Blood 7.3 g/dL (6.4-8.2)
[2023-10-30] MEDS ORDERED: CLIN150 PO (20:44)
== END 2023-10-30 21:08 | disposition home or self-care (01) ==
LOC: ER 19:27
PROVIDERS: Physician Assistant
DX: K12.2 Cellulitis and abscess of mouth (principal); M85.80 Other specified disorders of bone density and structure, unspecified site; E66.9 Obesity, unspecified; Z68.42 Body mass index [BMI] 45.0-49.9, adult; I10 Essential (primary) hypertension; G47.33 Obstructive sleep apnea (adult) (pediatric); Z79.899 Other long term (current) drug therapy; Z88.0 Allergy status to penicillin; Z88.8 Allergy status to other drugs, medicaments and biological substances; Z91.018 Allergy to other foods
CPT/HCPCS: 80053; 83605; 85025; 93005; 93010; 99285-25; A9270